=== PATIENT | female | born 1995 | race Two or more races ===

== ENCOUNTER 2023-01-06 13:26 | Emergency (ER) | payer OTHER ==
[~2023-01-06] VITALS: Ht 162.6 cm; Wt 61.7 kg
[2023-01-06] MEDS ORDERED: ZITHROMAX500 MG PO (13:56)
== END 2023-01-06 14:04 | disposition home or self-care (01) ==
LOC: ER 13:26
DX: O98.811 Other maternal infectious and parasitic diseases complicating pregnancy, first trimester (principal); Z3A.11 11 weeks gestation of pregnancy; A49.3 Mycoplasma infection, unspecified site

== ENCOUNTER 2023-01-12 10:12 | Outpatient (CLI) | payer OTHER ==
[~2023-01-12 10:12] MED LIST: ZITHROMAX500 MG PO
== END 2023-01-12 12:25 | disposition home or self-care (01) ==
LOC: PRENATAL 10:12
PROVIDERS: ATTEND Obstetrics & Gynecology Maternal & Fetal Medicine
DX: O36.80X0 Pregnancy with inconclusive fetal viability, not applicable or unspecified (principal); Z36 Encounter for antenatal screening of mother; Z3A.11 11 weeks gestation of pregnancy

== ENCOUNTER 2023-03-11 12:43 | Outpatient (CLI) | payer OTHER | END 2023-03-11 14:23 | disposition home or self-care (01) | LOC: PRENATAL 12:43 | PROVIDERS: ATTEND Obstetrics & Gynecology Maternal & Fetal Medicine | DX: O35.3XX0 Maternal care for (suspected) damage to fetus from viral disease in mother, not applicable or unspecified (principal); O44.00 Complete placenta previa NOS or without hemorrhage, unspecified trimester; Z3A.20 20 weeks gestation of pregnancy ==

== ENCOUNTER 2023-05-30 10:41 | Emergency (ER) | payer OTHER ==
[~2023-05-30] VITALS: Ht 162.6 cm; Wt 69.4 kg
[2023-05-30] MEDS ORDERED: PRENA1 TRUE CO1 EACH (11:28)
== END 2023-05-30 14:06 | disposition home or self-care (01) ==
LOC: ER 10:42
DX: R53.81 Other malaise (principal); J06.9 Acute upper respiratory infection, unspecified; Z20.822 Contact with and (suspected) exposure to COVID-19

== ENCOUNTER 2023-06-08 08:50 | Outpatient (CLI) | payer OTHER ==
[~2023-06-08 08:50] MED LIST changes: +PRENA1 TRUE CO1 EACH
== END 2023-06-08 08:54 | disposition home or self-care (01) ==
LOC: PRENATAL 08:50
PROVIDERS: ATTEND Obstetrics & Gynecology Maternal & Fetal Medicine
DX: O26.849 Uterine size-date discrepancy, unspecified trimester (principal); O36.8199 Decreased fetal movements, unspecified trimester, other fetus; Z3A.32 32 weeks gestation of pregnancy

== ENCOUNTER 2023-07-15 16:48 | Inpatient (IN) | payer OTHER ==
[~2023-07-15] VITALS: Ht 162.6 cm; Wt 73.0 kg
[2023-07-15] MEDS ORDERED: OXYTOCIN 500 ML IV SCH (17:15)
[2023-07-15 17:52] LABS: HEMATOCRIT 32.1 % (36.0-45.00); HEMOGLOBIN 10.5 g/dL (12.0-15.00); MEAN CELL VOLUME 79.4 fL (80.00-100.00); MEAN CORPUSCULAR HEMOGLOBIN 26.1 pg (27.00-32.0); MEAN CORPUSCULAR HGB CONC 32.9 g/dl (32.0-36.0); PLATELET COUNT 395 K/uL (150-450); RED BLOOD COUNT 4.04 M/uL (4.00-6.00); RED CELL DISTRIBUTION WIDTH 15.6 % (11.5-14.5)
[2023-07-15 17:55] LABS: URINE APPEARANCE Clear; URINE BILIRRUBIN Negative (NEGATIVE); URINE BLOOD Negative; URINE COLOR Yellow; URINE GLUCOSE Negative (NEGATIVE); URINE LEUKOCYTE Negative; URINE NITRATE Negative; URINE PROTEIN Negative (NEGATIVE); URINE UROBILINOGEN 0.2 E.U./dl
[2023-07-15 17:59] LABS: URINE BACTERIA 211.5 uL (0.0-1933); URINE EPITHELIAL CELLS 38.9 uL (0.0-38.8); URINE RBC 4.3 uL (0.0-20.8); URINE WBC 15.6 uL (0.0-23.2)
[2023-07-15] MEDS ORDERED: RINGERS SOLUTION,LACTATED 1,000 ML IV SCH (18:00)
[2023-07-15 18:19] LABS: ALBUMIN 2.9 gm/dL (3.4-5.0); BILIRUBIN TOTAL 0.27 mg/dL (0.3-1.2); CALCIUM 9.2 mg/dL (8.5-10.1); CREATININE SERUM 0.78 mg/dL (0.55-1.02); GFR 88.59; GLOBULINA 3.3 G/DL (2.4-3.5); POTASSIUM 4.21 mEq/L (3.5-5.1); TOTAL PROTEIN 6.2 gm/dL (6.4-8.2)
[2023-07-15 18:28] LABS: INR < 0.93; PARTIAL THROMBOPLASTIN TIME 27.1 SECONDS (22.0-34.0); PROTHROMBIN TIME 9.7 SECONDS (9.0-11.5)
[2023-07-15] MEDS ORDERED: MORPHINE SULFATE 4 MG/ML CARTRIDGE IV ONE (19:00)
[2023-07-15] MEDS ORDERED: ERYTHROMYCIN BASE 1 GM TUBE OP ONE (21:04)
[2023-07-15] MEDS ORDERED: OXYTOCIN 10 UNITS/ML VIAL ONE (21:04)
[2023-07-15] MEDS ORDERED: CHLORHEXIDINE GLUCONATE 120 ML BOTTLE TOP ONE (21:04)
[2023-07-15] MEDS ORDERED: LIDOCAINE HCL 100 MG/10ML VIAL ONE (21:05)
[2023-07-16] MEDS ORDERED: BENZOCAINE/MENTHOL 90 ML BOTTLE TOP PRN (00:30)
[2023-07-16] MEDS ORDERED: ERYTHROMYCIN BASE 1 GM TUBE OP SCH (00:45)
[2023-07-16] MEDS ORDERED: LIDOCAINE HCL 1% 200MG/20ML VIAL IJ SCH (00:45)
[2023-07-16] MEDS ORDERED: ACETAMINOPHEN 500 MG GEL..CAP PO PRN (00:45)
[2023-07-16] MEDS ORDERED: OXYTOCIN 1,000 ML IV SCH (00:45)
[2023-07-16] MEDS ORDERED: CHLORHEXIDINE GLUCONATE 120 ML BOTTLE TP SCH (00:45)
[2023-07-16] MEDS ORDERED: PNV,CALCIUM 72/IRON/FOLIC ACID 1 TAB TABLET PO SCH (09:00)
[2023-07-16 17:31] LABS: HEMATOCRIT 28.9 % (36.0-45.00); HEMOGLOBIN 9.6 g/dL (12.0-15.00); MEAN CORPUSCULAR HEMOGLOBIN 26.5 pg (27.00-32.0); MEAN CORPUSCULAR HGB CONC 33.1 g/dl (32.0-36.0); PLATELET COUNT 364 K/uL (150-450); RED BLOOD COUNT 3.61 M/uL (4.00-6.00); RED CELL DISTRIBUTION WIDTH 15.7 % (11.5-14.5)
== END 2023-07-17 17:16 | disposition home or self-care (01) | DRG 807 ==
LOC: LDR 16:48 → OB/GYN 16:48
PROVIDERS: ADMIT Obstetrics & Gynecology; ATTEND Obstetrics & Gynecology
PROC: 10E0XZZ Delivery of Products of Conception, External Approach (ICD-10-PCS; principal; 2023-07-15)
PROC: 0HQ9XZZ Repair Perineum Skin, External Approach (ICD-10-PCS; 2023-07-15)
PROC: 4A1HXCZ Monitoring of Products of Conception, Cardiac Rate, External Approach (ICD-10-PCS; 2023-07-15)
PROC: 3E033VJ Introduction of Other Hormone into Peripheral Vein, Percutaneous Approach (ICD-10-PCS; 2023-07-15)
DX: O70.0 First degree perineal laceration during delivery (principal); Z37.0 Single live birth; Z3A.38 38 weeks gestation of pregnancy; Z20.822 Contact with and (suspected) exposure to COVID-19